=== PATIENT | male | born 1995 | race Caucasian/White ===

== ENCOUNTER 2020-12-07 01:04 | Emergency (ER) | payer SELFPAY ==
[~2020-12-07] VITALS: Ht 182.9 cm; Wt 72.6 kg
[2020-12-07 01:11] VITALS: BP_SYST 156
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
--- NOTE | 2020-12-07 01:25 | NUR ---
ER Dr. PEÑA at bedside examining patient.
[2020-12-07 01:30] VITALS: BP_SYST 156
--- NOTE | 2020-12-07 01:31 | NUR ---
Patient AND OFFICER given written and verbal discharge instructions and verbalizes understanding. ER MD discussed with patient the results and treatment provided. Patient in stable condition. ID arm band removed. NO RX given. Patient educated on pain management and to follow up with PMD. Pain Scale 0/10 Opportunity for questions provided and answered.
== END 2020-12-07 01:30 ==
LOC: SED 01:04
DX: Z04.1 Encounter for examination and observation following transport accident (principal); V49.49XA Driver injured in collision with other motor vehicles in traffic accident, initial encounter; Y93.89 Activity, other specified; Y92.89 Other specified places as the place of occurrence of the external cause; Y99.8 Other external cause status
CPT/HCPCS: 99283